=== PATIENT | female | born 1960 | race Caucasian/White ===

== ENCOUNTER → 2016-08-30 | Outpatient (CLI) | payer BC, OTHER ==
[~2016-08-30] MED LIST: ASPEC325 PO; CLB200 PO; HYDR-5688 PO; OXYSR10 PO; SNK PO
--- NOTE | 2016-08-30 16:26 | MAMMOGRAPHY REPORT ---
BILATERAL DIGITAL SCREENING MAMMOGRAM TOMOSYNTHESIS WITH CAD: 08/30/2016 CLINICAL HISTORY: Routine screening. Patient has no complaints. TECHNIQUE: Breast tomosynthesis in addition to standard 2D mammography was performed. Current study was also evaluated with a Computer Aided Detection (CAD) system. COMPARISON: Comparison is made to exams dated: 08/28/2015 mammogram, 07/17/2014 mammogram, 3 mammogram, 07/13/2011 mammogram, 07/09/2010 mammogram, and 07/14/2012 mammogram - [facility]. BREAST COMPOSITION: The tissue of both breasts is extremely dense, which lowers the sensitivity of mammography. FINDINGS: No suspicious masses, calcifications, or areas of architectural distortion are noted in e ither breast. There has been no significant interval change compared to prior exams. IMPRESSION: ACR BI-RADS CATEGORY 1: NEGATIVE There is no mammographic evidence of malignancy. A 1 year screening mammogram is recommended. The p atient will receive written notification of the results. Approximately 10% of breast cancers are not detected with mammography. A negative mammographic repor t should not delay biopsy if a clinically suggestive mass is present. Mikala Curtis M.D. /:08/30/2016 12:40:55 Inker: Marie Falcon, [facility] letter sent: Normal 1/2 BI-RADS Code: ACR BI-RADS Category 1: Negative
== END | disposition home or self-care (01) ==
LOC: C.MAMM 08:11
PROVIDERS: ATTEND Family Medicine
DX: Z12.31 Encounter for screening mammogram for malignant neoplasm of breast (principal); M81.0 Age-related osteoporosis without current pathological fracture

== ENCOUNTER → 2016-10-04 | Outpatient (CLI) | payer BC, OTHER | END | disposition home or self-care (01) | LOC: C.PAPS 16:10 | PROVIDERS: ATTEND Physician Assistant | DX: Z01.419 Encounter for gynecological examination (general) (routine) without abnormal findings (principal) ==

== ENCOUNTER → 2017-09-01 | Outpatient (CLI) | payer OTHER ==
--- NOTE | 2017-09-01 15:09 | MAMMOGRAPHY REPORT ---
BILATERAL DIGITAL SCREENING MAMMOGRAM TOMOSYNTHESIS WITH CAD: 09/01/2017 TECHNIQUE: Breast tomosynthesis in addition to standard 2D mammography was performed. Current study was also evaluated with a Computer Aided Detection (CAD) system. COMPARISON: Comparison is made to exams dated: 08/28/2015 mammogram, 07/17/2014 mammogram, 07/16/2013 mammogram, 07/14/2012 mammogram, and 07/13/2011 mammogram - [facility] [address]. BREAST COMPOSITION: The tissue of both breasts is extremely dense, which lowers the sensitivity of m ammography. FINDINGS: No suspicious masses, calcifications, or areas of architectural distortion are noted in ei ther breast. There has been no significant interval change compared to prior exams. IMPRESSION: ACR BI-RADS CATEGORY 1: NEGATIVE There is no mammographic evidence of malignancy. A 1 year screening mammogram is recommended. The pa tient will receive written notification of the results. Approximately 10% of breast cancers are not detected with mammography. A negative mammographic report should not delay biopsy if a clinically suggestive mass is present. Mikala Curtis M.D. ah/:09/01/2017 11:08:15 Wire Basket Maker: Catrachita VEGAS(R)(M), [facility] [address] letter sent: Normal 1/2 BI-RADS Code: ACR BI-RADS Category 1: Negative
== END | disposition home or self-care (01) ==
LOC: C.MAMM 08:36
PROVIDERS: ATTEND Family Medicine
DX: Z12.31 Encounter for screening mammogram for malignant neoplasm of breast (principal)

== ENCOUNTER → 2017-09-01 | Outpatient (CLI) | payer OTHER | END | disposition home or self-care (01) | LOC: C.MAMM 08:35 | PROVIDERS: ATTEND Internal Medicine Rheumatology | DX: M85.89 Other specified disorders of bone density and structure, multiple sites (principal) ==

== ENCOUNTER 2020-04-09 10:37 | Observation (INO) ==
--- NOTE | 2020-03-20 11:02 | PAT Medication Instructions ---
Medication Instructions Date of Service March 20, 2020 Home Medications cholecalciferol (vitamin D3) [Vitamin D3] 50 mcg PO QAM tramadol 50 mg PO BID PRN DO NOT take the morning of surgery cholecalciferol (vitamin D3) [Vitamin D3] 50 mcg PO QAM Take morning of surgery With a small sip of water, OTHERWISE NOTHING TO EAT OR DRINK AFTER MIDNIGHT: tramadol 50 mg PO BID PRN (okay to take up to 4 hours prior to surgery if needed) Take evening before surgery tramadol 50 mg PO BID PRN (if needed) Other Notes If you have any questions please call us at [phone] or [phone] or [phone] or [phone]
--- NOTE | 2020-03-21 09:43 | Anesthesiology Consultation ---
Date of Service March 21, 2020 Assessment & Plan (1) Encounter for pre-operative examination: COVID Status: As of 03/21 assessment, patient denies travel to endemic area, known exposure/sick contacts, or symptoms of COVID19. Patient instructed that they and their household members must follow strict social distancing guidelines, wear a mask in public and avoid travel for 14 days prior to surgery. Preoperative COVID19 testing to be completed prior to surgery per surgeon's arr angements. Patient made aware to self-isolate as much as possible between COVID testing and surgery. Chart Review Chart Review: Acceptable Risk for Surgery (pending surgeon ordered PCP clearance 03/26) and Patient seen in Pre Admission Testing Teaching & Discussion Instructed NPO after midnight before surgery, except medications with 15 cc of water. Medication instructions provided according to the PAT guidelines. History Surgery Operation Date: 04/09/20 12:00 Proposed Procedures p Right Total Knee Arthroplasty - Eric Gonzalez MD Height/Weight Height: 5 ft 2 in Weight: 62.8 kg Allergies Allergy/AdvReac Type Severity Reaction Status Date / Time No Known Allergies Allergy Unverified 03/14/20 08:35 Medications Home Medications Medication Instructions Recorded Confirmed Last Taken cholecalciferol (vitamin D3) 50 mcg PO QAM 03/14/20 03/14/20 Unknown [Vitamin D3] tramadol 50 mg PO BID PRN 03/14/20 03/14/20 Unknown Past Medical History Medical History Osteoarthritis Exercise / Class Metabolic Activity II 4-5 Yardwork/Stairs/Walk up hill (Can do stairs, slowly due to knee pain, but no SOB or CP) Past Family History Family History Other No family history of adverse response to anesthesia Past Surgical History Surgical History History of bladder surgery bladder tack History of colonoscopy History of open reduction and internal fixation (ORIF) procedure left ankle History of total knee replacement left Past Anesthesia History No Family Hx of Anesthesia Complications Pt reports her BP was high after previous TKA. Per review of records, pt was only mildly hypertensive, briefly in PACU. SAB + adductor canal block + MAC tolerated well. History of PONV No Hx of PONV and No Hx of Motion Sickness Social History Smoking Status: Never smoker Do You Dip or Chew Tobacco: No Hx Alcohol Use: No Hx Substance Use: No substance use type: does not use Review of Systems Pt denies any recent chest pain, shortness of breath, palpitations, cough, fever, URI, or uncontrolled acid reflux. Physical Exam Vital Signs BP: 135/80 P: 81bpm SPO2: 98% RA T: 98.3 F R: 16 ENMT Mouth: + dental restorations (crown on upper R molar); no chipped teeth and no loose teeth Thyromental Distance: < 3.5 Finger Breadths (3) Mallampati Class: II Neck normal visual inspection; neck extension not limited Respiratory normal respiratory effort Auscultation: lungs clear to auscultation bilaterally Cardiovascular Rate/Rhythm: regular rate and regular rhythm Heart Sounds: no murmur Testing Laboratory Results 03/21/20 09:55 03/21/20 09:22 PT 11.1 Seconds (9.0-12.0) 03/21/20 09:55 INR 1.1 (0.9-1.1) 03/21/20 09:55 APTT 27.1 Seconds (21.0-31.0) 03/21/20 09:55 Hemoglobin A1c 5.3 % (4.5-5.6) 03/21/20 09:55 Urine Color Yellow 03/21/20 09:55 Urine Appearance Clear (Clear) 03/21/20 09:55 Urine pH 8.0 (4.5-7.5) H 03/21/20 09:55 Ur Specific [place] 1.010 (1.000-1.030) 03/21/20 09:55 Urine Protein Negative (Negative) 03/21/20 09:55 Urine Glucose (UA) Negative (Negative) 03/21/20 09:55 Urine Ketones Negative (Negative) 03/21/20 09:55 Urine Nitrite Negative (Negative) 03/21/20 09:55 Ur Leukocyte Esterase Trace (Negative) H 03/21/20 09:55 Urine WBC (Auto) 1-5 /hpf (0-5) 03/21/20 09:55 Urine RBC (Auto) 0-4 /hpf (0-4) 03/21/20 09:55 U Hyaline Cast (Auto) 0 /lpf (0-5) 03/21/20 09:55 U Epithel Cells (Auto) >30 /lpf (0-5) H 03/21/20 09:55 Urine Bacteria (Auto) Negative (Negative) 03/21/20 09:55 Blood Type A Positive 03/21/20 09:55 Antibody Screen NEGATIVE 03/21/20 09:55 Electrocardiogram Date: 03/21/20 Findings: + NSR @ (68bpm) Minimal voltage criteria for LVH, may be normal variant. No significant change from 2014 EKG. Chest X-Ray Date: 03/21/20 Findings: + NAD
--- NOTE | 2020-03-21 10:22 | XRay Report ---
XR chest Pre-admission PA/Lat CLINICAL HISTORY: Preoperative evaluation. COMPARISON STUDY: Chest radiograph November 01, 2014. FINDINGS: Lung volumes are normal. Lungs are clear. There is no pneumothorax or pleural effusion. Car diac size is normal. Mediastinal contours are normal. There is no evidence for pulmonary edema. IMPRESSION: No acute cardiopulmonary findings. ACT 112: Negative or not required by law. Electronically signed by: Jose Cox M.D. 03/21/2020 10:20 AM
[2020-03-21 10:51] LABS: Basophils # (auto) 0.02 K/uL (0-0.2); Basophils % (auto) 0.4 %; Eosinophils # (auto) 0.09 K/uL (0-0.5); Eosinophils % (auto) 1.7 %; Hematocrit (blood only) 39.4 % (37-47); Lymphocytes # (auto) 1.15 K/uL (1.2-3.4); Mean Corpuscular Hemoglobin 30.7 pg (25-34); Mean Corpuscular Volume 92.9 fL (80-100); Mean Platelet Volume 9.2 fL (7.4-10.4); Monocytes # (auto) 0.41 K/uL (0.11-0.59); Monocytes % (auto) 7.8 %; Neutrophils # (auto) 3.56 K/uL (1.4-6.5); Neutrophils % (auto) 68.1 %; Platelet Count 275 K/uL (130-400); RDW Coefficient of Variation 12.7 % (11.5-14.5); RDW Standard Deviation 43.2 fL (36.4-46.3); Red Blood Count 4.24 M/uL (4.2-5.4); White Blood Count 5.23 K/uL (4.8-10.8)
[2020-03-21 10:55] LABS: Appearance Urine Clear (Clear); Bacteria Urine Automated Negative (Negative); Bilirubin Urine Negative (Negative); Blood Urine Negative (Negative); Cast Urine Automated 0 /lpf (0-5); Color Urine Yellow; Epithelial Cell Urine Auto >30 /lpf (0-5); Glucose Urine UA Negative (Negative); Ketones Urine Negative (Negative); Leukocyte Esterase Urine Trace (Negative); Nitrite Urine Negative (Negative); Protein Urine Negative (Negative); RBC Urine Automated 0-4 /hpf (0-4); Urobilinogen Urine Negative (Negative)
[2020-03-21 10:58] LABS: Albumin Level 3.5 gm/dl (3.4-5.0); BUN Creatinine Ratio 24.1 (10-20); Calcium 9.3 mg/dl (8.5-10.1); Creatinine Clr Calc Pharmacy 79.2 ml/min; Est GFR (African American) 111.1; Est GFR (Non-African American) 95.8; Potassium 3.9 mmol/L (3.5-5.1)
[2020-03-21 11:04] LABS: INR 1.1 (0.9-1.1); Partial Thromboplastin Time 27.1 Seconds (21.0-31.0); Prothrombin Time 11.1 Seconds (9.0-12.0)
[2020-03-21 12:07] LABS: Estimated Average Glucose 105 mg/dl; Hemoglobin A1C 5.3 % (4.5-5.6)
--- NOTE | 2020-03-23 04:41 | Electrocardiogram Report ---
Test Reason : Blood Pressure : / mmHG Vent. Rate : 068 BPM Atrial Rate : 068 BPM P-R Int : 154 ms QRS Dur : 090 ms QT Int : 448 ms P-R-T Axes : 074 078 063 degrees QTc Int : 476 ms Normal sinus rhythm Minimal voltage criteria for LVH, may be normal variant Borderline ECG When compared with ECG of 01-NOV-2014 13:48, No significant change was found Confirmed by Kenny Remy ([id number]) on 03/23/2020 4:40:54 AM Referred By: Eric Gonzalez Confirmed By:Kenny Remy
--- NOTE | 2020-04-08 21:13 | History and Physical Report ---
DATE OF ADMISSION: 04/09/2020 CHIEF COMPLAINT: Chronic right knee pain. HISTORY OF PRESENT ILLNESS: This is a 59-year-old female patient of Dr. Gonzalez'kylah complaining of chronic right knee pain, longstanding, now progressively getting worse. The patient has failed conservative treatment including intraarticular injections, use of tramadol, anti-inflammatories, home exercise program. The patient has increased pain with weightbearing activities and her pain does interfere with her activities of daily living. The patient has been diagnosed with end-stage osteoarthritis per clinical and radiographic exams and wishes to proceed with a right total knee arthroplasty. PAST MEDICAL HISTORY: Hypertension, osteoarthritis, dental issues. SOCIAL HISTORY: Nonsmoker and nondrinker. PAST SURGICAL HISTORY: Bilateral knee arthroscopy. FAMILY HISTORY: Noncontributory. REVIEW OF SYSTEMS: Chronic right knee pain and instability. Otherwise, denies any shortness of breath, chest pain, nausea, vomiting or any other joint complaints. MEDICATIONS: 1. Actonel 150 mg 1 tablet per month. 2. Tramadol 50 mg every 6 hours as needed. 3. Aleve as needed. 4. Terbinafine 250 mg daily. ALLERGIES: No known drug allergies. PHYSICAL EXAMINATION: GENERAL: Well-developed, well-nourished 59-year-old female in no acute distress. She is alert and oriented x3 and pleasant. HEENT: Normocephalic, atraumatic. Extraocular motions are intact. Pupils are equal and reactive to light. HEART: Regular rate and rhythm, no murmurs. LUNGS: Clear. ABDOMEN: Soft, nontender, bowel sounds present. EXTREMITIES: Right lower extremity, positive effusion with a valgus deformity. She has lateral joint line tenderness. Limited range of motion of 0-120 with pain, crepitation with range of motion, 5/5 strength with pain. Neurologically and neurovascularly, she is intact in her right lower extremity. DIAGNOSES: Right knee end-stage osteoarthritis, rheumatoid arthritis, osteoarthritis, hypertension. PLAN: The patient was advised of her diagnosis. Indications, risks, benefits, postop course have all been reviewed. The patient wished to proceed with a right total knee arthroplasty. Necessary consent forms, preoperative testing and clearances will be obtained.
[~2020-04-09 10:37] MED LIST changes: +ACETAMINOPHEN 500 MG TAB PO SCH; -ASPEC325 PO; +BUPIVACAINE 0.5 % 5 MG/1 ML PF 10ML VIAL ONE; +BUPIVACAINE/EPINEPHRINE 0.25% 1:200,000 30 ML VIAL ONE; +CEFAZOLIN 1000MG 1,000 MG/7.5 ML SYR IV SCH; -CLB200 PO; +CeleBREX 200 MG CAP PO SCH; +FAMOTIDINE 20 MG TAB PO SCH; +GABAPENTIN 600 MG DOSE PO SCH; -HYDR-5688 PO; +LR 500ML BOLUS, THEN 15ML/HR IV SCH; +METOCLOPRAMIDE HCL 10 MG TABLET PO SCH; -OXYSR10 PO; +ROPIVACAINE 0.5% HCL/PF 150 MG, BUPIVACAINE 0.5% MPF 30 ML, EPINEPHrine 30MG/30ML (OR U... INFIL SCH; -SNK PO; +TRANEXAMIC ACID 1,000 MG **IV Intra-op IV SCH; +TRANEXAMIC ACID 1,000 MG **IV Pre-op IV SCH; +dexAMETHasone 4 MG TAB PO SCH
[2020-04-09] MEDS ORDERED: LIDOCAINE HCL 2% 2 ML VIAL/AMP(20MG/ML) INFIL ONE (11:45)
[2020-04-09] MEDS ORDERED: MIDAZOLAM HCL 1 MG/ML 2ML VIAL ONE (11:45)
[2020-04-09] MEDS ORDERED: PROPOFOL IV EMULSION 10 MG/ML 20 ML VIAL IV ONE ×2 (11:45→13:29)
[2020-04-09] MEDS ORDERED: fentaNYL citrate 100 MCG/2 ML VIAL ONE (11:45)
--- NOTE | 2020-04-09 11:45 | History & Physical Bridge Note ---
Date of Service April 09, 2020 History & Physical Bridge Note I have examined the patient, reviewed the History & Physical and in the interval since the performance of the History & Physical I have noted the following changes of clinical significance: no changes noted
[2020-04-09] MEDS ORDERED: ATROPINE SULFATE 0.1 MG/ML 10ML SYR IV PRN (12:39)
[2020-04-09] MEDS ORDERED: HYDROmorphone INJ 2 MG/ML SYR/VIAL IV PRN (12:39)
[2020-04-09] MEDS ORDERED: PROMETHAZINE HCL 12.5 MG in SODIUM CHLORIDE 0.9% 50 ML IV PRN (12:39)
[2020-04-09] MEDS ORDERED: ePHEDrine sulfate 50 MG/ML AMP IV PRN (12:39)
[2020-04-09] MEDS ORDERED: fentaNYL citrate 100 MCG/2 ML VIAL IV PRN (12:39)
[2020-04-09] MEDS ORDERED: ONDANSETRON INJ 2 MG/ML 2 ML VIAL IV PRN ×2 (12:39→16:59)
[2020-04-09] MEDS ORDERED: BACITRACIN INJ 50,000 UNIT VIAL ONE (12:55)
[2020-04-09] MEDS ORDERED: ORTHO JOINT ANESTHETIC ONE (12:55)
[2020-04-09] MEDS ORDERED: PHENYLEPHRINE 100MCG/ML 5ML SYR ONE (13:45)
--- NOTE | 2020-04-09 15:42 | Operative Report ---
Post Operative Report Pre & Post Diagnosis Operation Date: 04/09/20 13:40 Pre-Op Diagnosis: Right knee end-stage osteoarthritis Post-Op Diagnosis: Right knee end-stage osteoarthritis I identified the patient and participated in the time-out.: Yes Procedure Operation Date: 04/09/20 13:40 Actual Procedures p Right Total Knee Arthroplasty(Right) - Eric Gonzalez MD Surgeon Eric Gonzalez MD Soup Mixer Wojciech RATLIFF Estimated Blood Loss 5 Findings Consistent with Post-Op Diagnosis Specimens Bone cuts Drains 2 Hemovac Anesthesia Type MAC Spinal Regional Complications none Disposition Accompanied Patient To Recovery: No Disposition: Recovery Room Indications 59-year-old female with severe osteoarthritis of right knee. History of a left knee replacement in the past. Right knee has prior history of arthroscopy. Patient has severe osteoarthritis with hypoplastic lateral femoral condyle bone loss lateral compartment marked valgus alignment with knee hyperextension and MCL laxity. Description of Procedure Patient taken to the operating room placed supine on the operating table and anesthetized under spinal MAC regional anesthesia. Exam under anesthesia demonstrated 20 degrees hyperextension flexion to 145 degrees medial and lateral laxity with varus stress she has opening laterally consistent with bone loss laterally but the medial side has laxity of the MCL and positive Rebekah exam.. A pneumatic tourniquet was placed about the thigh of the right lower extremity. The right lower extremity was prepped and draped in usual fashion. Leg was elevated exsanguinated with an Esmarch bandage and the pneumatic was raised to 300 mm mercury. An anterior incision was made across the right knee. The skin was incised longitudinally subcutaneous flaps were elevated and an incision was made through the medial retinaculum extending up into the mid third of the quadriceps tendon and extended down to the medial tibial tubercle. Intra- articular findings demonstrated absent ACL severe tricompartmental DJD grade 4 osteoarthritis exposed bone medial compartment and lateral compartment with posterior lateral bone loss significant patellofemoral osteoarthritis with circumferential patellar osteophytes. There are chronic lateral meniscus tear with subluxation and medial meniscus appeared that there was a prior partial medial meniscectomy the knee was exposed by excising the infrapatellar fat pad, excising the meniscal remnants.Any inflamed synovial tissue was resected. The fat pad over the anterior femur was resected for placement of the component in that area. The lateral synovial bands were release. Appropriate releases were performed to balance ligaments. The femur was exposed. The custom femoral cutting block was pinned in position. The distal femoral cutting block was applied. The distal femoral cut was made with the oscillating saw. The size 8, 4-in-1 cutting block was placed. The size 8 look too large and to actually rotated so went ahead and drilled intramedullary drill hole into the femur placed the guide finn and looked at a 6 degree valgus cut. Distal femoral cut was adjusted slightly by few millimeters only. Then we placed the sizing guide in place and resized the femur placing the drill holes in 3 degrees of external rotation to match epicondylar axis taking in account the lateral bone loss on the lateral femoral condyle. The femur was resized and a 6 appeared to be appropriate size. The size six 4-in-1 cutting block was pinned in position in the knee and posterior and chamfer cuts were made . The knee was extended and a subperiosteal peel lateral release was performed around the patella. The patella width was measured and width was reproduced using freehand cut technique. The 32 x 8 millimeter symmetrical patella was used. 3 drill holes are made for the pegs. The tibia was exposed. An external tibial cutting guide was just to make a perpendicular cut along exit the tibia adding some increased slope from her natural slope due to the knee hyperextension. the proximal cut was made with the oscillating saw. All osteophytes were resected. The lamina livestock farm workers was used to assess ligamentous balance and the ligaments were balanced in extension and flexion. There were large posterior femoral condylar osteophytes removed with a curved osteotome and angled curette. All notch osteophytes were removed. The tibia was reexposed and measured for a size E tibial component. This was externally rotated in line with the tibial tubercle and the fixation pins were drilled. The proximal tibia was fashioned with the drill and punch. The size 6 CR femoral trial was inserted. The trial MC inserts were used. The 16 mm insert gave balanced ligaments through full range of motion. The patella tracked centrally. the trials were removed. The orthomix anesthetic cocktail was injected per protocol. The knee was then copiously irrigated with pulsatile lavage antibiotic solution with bacitracin. The final components were cemented with Simplex cement. The final components were [employer] persona 6 CR narrow right femoral component, E tibia, 16 MC polyethylene, 32+8 patella. While the cement cured with the knee in full extension the Betadine soak was used per protocol. After the cement cured, the knee joint was copiously irrigated with antibiotic solution with bacitracin. 2 drains were brought out laterally and connected to a Hemovac. The quadriceps tendon and medial retinaculum were closed with interrupted [id number] #1 Vicryl sutures. The knee was taken through a full range of motion and repair was secure. The subcutaneous tissues were closed with 2-0 Vicryl sutures and skin was closed with victorino. Sterile dressings were applied and the patient tolerated the procedure well. Wojciech RATLIFF my physician automotive service assistant, assisted in soft tissue retraction instrument management leg positioning the closure and will participate in the postoperative care of the patient. I attest to the content of the Intraoperative Record and any orders documented therein. Any exceptions are noted below.
--- NOTE | 2020-04-09 16:28 | XRay Report ---
RIGHT KNEE 2 VIEWS History: Right total knee arthroplasty. Degenerative arthritis. Postop. FINDINGS: The patient is status post a right total knee arthroplasty. The hardware is intact. No frac ture or dislocation. Skin victorino and surgical drains are in place. IMPRESSION: Right total knee arthroplasty. No evidence for hardware complication. ACT 112: Negative or not required by law. Electronically signed by: Herrera Siegel M.D. 04/09/2020 4:26 PM
--- NOTE | 2020-04-09 16:51 | Anesthesiology Progress Note ---
Date of Service April 09, 2020 Anesthesia Post Procedure Vital Signs Vital Signs: Temp Pulse Pulse Resp BP BP Pulse Ox 04/09/20 16:35 37.1 C 102 H 20 126/69 95 04/09/20 16:25 37.1 C 102 H 17 123/70 95 04/09/20 16:15 100 H 14 121/61 95 04/09/20 16:05 106 H 23 122/74 99 04/09/20 15:58 36.1 C L 99 H 15 115/57 L 98 04/09/20 11:52 73 18 127/72 100 04/09/20 11:06 36.9 C 80 18 155/75 H 98 Pain Intensity Right Knee: Pain Intensity: 4 Transfer of Care Handoff Completed per policy Notes Mental Status: alert / awake / arousable and participated in evaluation Patient Amnestic to Procedure: Yes Nausea / Vomiting: adequately controlled Pain: adequately controlled Airway Patency, RR, SpO2: stable & adequate BP & HR: stable & adequate Hydration State: stable & adequate Neuraxial Anesthesia: was administered and sensory block is resolving Anesthetic Complications: no major complications apparent and Pt Satisfied with anesthetic care
[2020-04-09] MEDS ORDERED: MAGNESIUM HYDROXIDE SUSP 30 ML UDC PO PRN (16:59)
[2020-04-09] MEDS ORDERED: bisacodyL 10 MG SUPP PR PRN (16:59)
[2020-04-09] MEDS ORDERED: NALOXONE HCL 0.4 MG/1 ML VIAL/CARP IV PRN (16:59)
[2020-04-09] MEDS ORDERED: HYDROmorphone INJ 0.5 MG/0.5 ML SYR IV PRN (16:59)
[2020-04-09] MEDS: SODIUM CHLORIDE 0.9% 1000ML 1,000 ML IV SCH (17:39)
[2020-04-09] MEDS: FERROUS GLUCONATE 324 MG TAB PO SCH (17:39)
--- NOTE | 2020-04-09 17:46 | Hospitalist Consultation ---
Date of Consultation April 09, 2020 Assessment & Plan (1) Status post total right knee replacement: - Pain management, bowel regimen and DVT ppx with ASA 81 mg BID and SCDs per the primary team - PT/OT consults, pt is planning on outpatient therapy with [facility] starting Tuesday. - Follow am CBC to monitor for acute blood loss (2) Osteoarthritis: - As above (3) Osteoporosis: - hx of osteopenia and being on Reclast, no longer on this medication. (4) DVT prophylaxis: DVT ppx: ASA 81 mg BID , SCDs CODE: FULL Thank you for involving us in the care of Mrs. Teixeira. Please do not hesitate to call with questions or concerns. At this time medicine service will sign off. Supervising Physician Co-Signing Physician Notes EVY Supervision Note: I personally saw and examined the patient. I verified all guerrero points and agree with EVY Hernandez with the following exceptions and/or additions: This patient is a 59-year-old female with a history of osteoporosis and osteoarthritis, here for right TKA. She has no complaints postoperatively. Denies nausea or vomiting. She is tolerating her dinner. Denies chest pain or shortness of breath, no abdominal pain. She is feeling quite well. Her history was reviewed and is fairly unremarkable. ROS is negative otherwise. Vitals reviewed Gen: AAOx3, NAD HEENT: Anicteric sclerae, EOMI CV: RRR no mgr nl S1S2 Pulm: CTAB no wcr Abd: +BS soft NT ND no masses or hernias Ext: No edema, 2+ DP pulses, right lower extremity with Martin wrap in place and drain coming from knee with bloody drainage Skin: No rashes, warm/dry Neuro: Full strength throughout Preoperative laboratory studies, chest x-ray, and ECG was all reviewed and is within normal limits 59-year-old female here with osteoarthritis and osteoporosis for right TKA. Postoperative medical management consultation was requested by the orthopedic s zhao. The patient is doing excellent at this time and has no major medical issues. Plan outlined as above Hospitalist service will sign off at this time. Please feel free to reconsult as needed for new or acute issues. History of Present Illness Reason for Consultation: Postop medical management Requesting Physician: Dr. Gonzalez Attending Physician: Eric Gonzalez MD History of Present Illness This is a 59 yo female with PMHx of osteoarthritis and osteopenia. She has previously had left ORIF ankle in 2011, left knee replacement in 2012 and pelvic fracture from falling on black ice in 2013 without surgical intervention. She was on reclast for 2 years but stopped after being advised her body would need to take a break, so has not been on this for a while. She presented for elective right total knee arthroplasty by Dr. Gonzalez performed on 04/09/2020. She has eaten breakfast without any difficulty, no nausea, vomiting. Last BM was this morning. She plans to do outpatient therapy with PT at [facility] in [place], appointment is scheduled for Tuesday. She denies any other acute complaints. Allergies Allergy/AdvReac Type Severity Reaction Status Date / Time No Known Allergies Allergy Unverified 04/09/20 10:58 Home Medications Home Medications Medication Instructions Recorded Confirmed Type cholecalciferol (vitamin D3) 50 mcg PO QAM 03/14/20 04/09/20 History [Vitamin D3] tramadol 50 mg PO BID PRN 03/14/20 04/09/20 History Patient History Medical History (Updated 04/09/20 @ 18:39 by Ludmila Fritz MD) Osteoarthritis Osteoporosis Surgical History (Updated 04/09/20 @ 17:44 by Sayda Hernandez PA-C) History of bladder surgery bladder tack History of colonoscopy History of open reduction and internal fixation (ORIF) procedure left ankle History of total knee replacement left Family History Other No family history of adverse response to anesthesia Social History Smoking Status: Never smoker Second Hand Exposure: No; Do You Dip or Chew Tobacco: No; Tobacco Cessation Education Requested by Patient: No Hx Alcohol Use: No Hx Substance Use: No Preferred Language: Bhutanese Communication Ability: Effective Engraver Steel Plate Required: No Beliefs That Will Affect Care: None Current Living Situation: Spouse Other Information That Helps Us Care for You: No Feels Safe at Home: Yes Safety Concerns: Feels Safe At This Time Assistive Devices: None Review of Systems Review of Systems: Constitutional: No fever, sweats or chills Eyes: No diplopia, no worsening or blurred vision ENT: normal hearing, no trouble swallowing Respiratory: No cough, sputum, dyspnea at rest or on exertion Cardiovascular: No chest pain, tightness or palpitations Abdomen: No pain, nausea, vomiting, diarrhea or constipation Musculoskeletal: + numbness in the left food, Otherwise no joint pain, calf pain, swelling Neurologic: No weakness, numbness/tingling, or balance problems Psychiatric: No anxiety or depression Skin: No rash or itch Physical Exam Physical Exam: General: awake, alert, no apparent distress Head: Normocephalic, atraumatic ENT: PERRL, EOMI, no pharyngeal exudate, mucous membranes moist Chest: Clear to auscultation, on room air, no adventitious breath sounds Cardiac: Regular rate and rhythm, no murmur, no JVD, normal peripheral pulses, good capillary refill Abdominal: NABS x 4 quadrants, soft, nondistended, nontender to palpation, no rebound or guarding Extremities: +RLE MARTIN wrap, dressing c/d/i, ROSALIA drain in place, icepack on. Otherwise normal inspection, no peripheral edema or erythema, calfs nontender to palpation Psych: Normal mood and affect Neuro: AAO x 3, no gross motor deficits, speech is clear, no peripheral sensory deficits Results & Data Results & Data ([facility]) Vital Signs (Past 12 Hours) Vital Signs Temp Pulse Pulse Resp BP BP Pulse Ox 04/09/20 17:28 36.5 C 89 16 111/69 94 04/09/20 17:00 36.6 C 96 H 16 124/70 94 04/09/20 16:45 36.9 C 98 H 20 120/63 94 04/09/20 16:35 37.1 C 102 H 20 126/69 95 04/09/20 16:25 37.1 C 102 H 17 123/70 95 04/09/20 16:15 100 H 14 121/61 95 04/09/20 16:05 106 H 23 122/74 99 04/09/20 15:58 36.1 C L 99 H 15 115/57 L 98 04/09/20 11:52 73 18 127/72 100 04/09/20 11:06 36.9 C 80 18 155/75 H 98 PG Care Time/CCT Total # of Minutes Spent Total Time Spent with Patient: Total time spent is greater than 50% in coordination of care (as documented) at patient's floor/unit and/or counseling patient: Coding Level of Care Code 74724 Inpt Consult Level 2 Diagnoses Status post total right knee replacement Z96.651 Osteoarthritis M19.90 Osteoporosis M81.0 DVT prophylaxis Z29.9
[2020-04-09] MEDS: SENNA 8.6 MG TAB PO SCH (20:39)
[2020-04-09] MEDS: ASPIRIN 81 MG ECTAB PO SCH (20:40)
[2020-04-09] MEDS: DOCUSATE SODIUM 100 MG CAP PO SCH (20:40)
[2020-04-09] MEDS: ACETAMINOPHEN 500 MG TAB PO SCH (21:24)
[2020-04-09] MEDS: OXYCODONE HCL IR 5 MG TAB (IMMEDIATE RELEASE) PO PRN (21:25)
[2020-04-09] MEDS: CEFAZOLIN 1000MG 1,000 MG/7.5 ML SYR IV SCH (21:25)
[2020-04-10] MEDS: OXYCODONE HCL IR 5 MG TAB (IMMEDIATE RELEASE) PO PRN ×4 (03:23→23:24)
[2020-04-10] MEDS: SODIUM CHLORIDE 0.9% 1000ML 1,000 ML IV SCH (03:29)
[2020-04-10] MEDS: CEFAZOLIN 1000MG 1,000 MG/7.5 ML SYR IV SCH (05:32)
[2020-04-10] MEDS: ACETAMINOPHEN 500 MG TAB PO SCH ×3 (05:32→20:58)
[2020-04-10 06:49] LABS: Hematocrit (blood only) 34.1 % (37-47); Hemoglobin 10.9 g/dL (12.0-16.0); Mean Corpuscular Hemoglobin 30.1 pg (25-34); Mean Corpuscular Volume 94.2 fL (80-100); Mean Platelet Volume 8.8 fL (7.4-10.4); Platelet Count 242 K/uL (130-400); RDW Standard Deviation 44.8 fL (36.4-46.3); Red Blood Count 3.62 M/uL (4.2-5.4); White Blood Count 10.62 K/uL (4.8-10.8)
[2020-04-10 07:21] LABS: BUN Creatinine Ratio 24.7 (10-20); Calcium 8.3 mg/dl (8.5-10.1); Creatinine Clr Calc Pharmacy 84.2 ml/min; Est GFR (African American) 112.2; Est GFR (Non-African American) 96.8; Potassium 4.3 mmol/L (3.5-5.1)
[2020-04-10] MEDS: DOCUSATE SODIUM 100 MG CAP PO SCH ×2 (08:11→20:17)
[2020-04-10] MEDS: MULTIVITAMIN TAB PO SCH (08:11)
[2020-04-10] MEDS: ASPIRIN 81 MG ECTAB PO SCH ×2 (08:11→20:17)
[2020-04-10] MEDS: FERROUS GLUCONATE 324 MG TAB PO SCH ×2 (08:11→17:45)
--- NOTE | 2020-04-10 08:46 | Orthopedic Progress Note ---
Date of Service April 10, 2020 Assessment & Plan (1) Right knee DJD: Postop day 1 status post right total knee arthroplasty. PT/OT protocols. DVT prophylaxis-aspirin p.o. twice daily, SCDs, KAYLIN khan. Pain management as written DC planning-patient planning for outpatient PT. Admission and Anticipated Discharge Date Admission Date: April 09, 2020 Subjective Postop day 1 Patient currently sitting up in bed awake and alert. No complaints this morning. Pain is controlled. Denies any shortness of breath, chest pain, lightheadedness. Physical Exam Physical Exam: Dressings are clean, dry, and intact. Calves are soft nontender. Neurovascular is intact. Toes are mobile. She has good dorsiflexion and plantarflexion of the right foot. Hemovac drainage was 200 mL's from the previous shift. Results & Data ([facility]) Vital Signs (Past 12 Hours) Vital Signs Temp Pulse Resp BP Pulse Ox 04/10/20 07:41 36.8 C 67 15 112/64 96 04/10/20 03:38 36.6 C 63 16 110/66 98 04/09/20 23:31 36.8 C 79 16 127/68 96 Laboratory Results Laboratory Results WBC 10.62 K/uL (4.8-10.8) 04/10/20 06:33 RBC 3.62 M/uL (4.2-5.4) L 04/10/20 06:33 Hgb 10.9 g/dL (12.0-16.0) L 04/10/20 06:33 Hct 34.1 % (37-47) L 04/10/20 06:33 MCV 94.2 fL (80-100) 04/10/20 06:33 MCH 30.1 pg (25-34) 04/10/20 06:33 MCHC 32.0 g/dL (32-36) 04/10/20 06:33 RDW Std Deviation 44.8 fL (36.4-46.3) 04/10/20 06:33 RDW Coeff of Gilberto 13.0 % (11.5-14.5) 04/10/20 06:33 Plt Count 242 K/uL (130-400) 04/10/20 06:33 MPV 8.8 fL (7.4-10.4) 04/10/20 06:33 Immature Gran % (Auto) 0.0 % 03/21/20 09:55 Neut % (Auto) 68.1 % 03/21/20 09:55 Lymph % (Auto) 22.0 % 03/21/20 09:55 [place] % (Auto) 7.8 % 03/21/20 09:55 Eos % (Auto) 1.7 % 03/21/20 09:55 Baso % (Auto) 0.4 % 03/21/20 09:55 Neut # (Auto) 3.56 K/uL (1.4-6.5) 03/21/20 09:55 Lymph # (Auto) 1.15 K/uL (1.2-3.4) L 03/21/20 09:55 [place] # (Auto) 0.41 K/uL (0.11-0.59) 03/21/20 09:55 Eos # (Auto) 0.09 K/uL (0-0.5) 03/21/20 09:55 Baso # (Auto) 0.02 K/uL (0-0.2) 03/21/20 09:55 Immature Gran # (Auto) 0.00 K/uL (0.00-0.02) 03/21/20 09:55 PT 11.1 Seconds (9.0-12.0) 03/21/20 09:55 INR 1.1 (0.9-1.1) 03/21/20 09:55 APTT 27.1 Seconds (21.0-31.0) 03/21/20 09:55 PTT Ratio 1.0 03/21/20 09:55 Sodium 143 mmol/L (136-145) 04/10/20 06:33 Potassium 4.3 mmol/L (3.5-5.1) 04/10/20 06:33 Chloride 112 mmol/L (98-107) H 04/10/20 06:33 Carbon Dioxide 27 mmol/L (21-32) 04/10/20 06:33 Anion Gap 4.0 (3-11) 04/10/20 06:33 BUN 16 mg/dl (7-18) 04/10/20 06:33 Creatinine 0.63 mg/dl (0.6-1.2) 04/10/20 06:33 Est Cr Clr Drug Dosing 84.2 ml/min 04/10/20 06:33 Est GFR ( Amer) 112.2 04/10/20 06:33 Est GFR (Non-Af Amer) 96.8 04/10/20 06:33 BUN/Creatinine Ratio 24.7 (10-20) H 04/10/20 06:33 Glucose 102 mg/dl (70-99) H 04/10/20 06:33 Estimat Average Glucose 105 mg/dl 03/21/20 09:55 Hemoglobin A1c 5.3 % (4.5-5.6) 03/21/20 09:55 Calcium 8.3 mg/dl (8.5-10.1) L 04/10/20 06:33 Albumin 3.5 gm/dl (3.4-5.0) 03/21/20 09:22 Urine Color Yellow 03/21/20 09:55 Urine Appearance Clear (Clear) 03/21/20 09:55 Urine pH 8.0 (4.5-7.5) H 03/21/20 09:55 Ur Specific [place] 1.010 (1.000-1.030) 03/21/20 09:55 Urine Protein Negative (Negative) 03/21/20 09:55 Urine Glucose (UA) Negative (Negative) 03/21/20 09:55 Urine Ketones Negative (Negative) 03/21/20 09:55 Urine Blood Negative (Negative) 03/21/20 09:55 Urine Nitrite Negative (Negative) 03/21/20 09:55 Urine Bilirubin Negative (Negative) 03/21/20 09:55 Urine Urobilinogen Negative (Negative) 03/21/20 09:55 Ur Leukocyte Esterase Trace (Negative) H 03/21/20 09:55 Urine WBC (Auto) 1-5 /hpf (0-5) 03/21/20 09:55 Urine RBC (Auto) 0-4 /hpf (0-4) 03/21/20 09:55 U Hyaline Cast (Auto) 0 /lpf (0-5) 03/21/20 09:55 U Epithel Cells (Auto) >30 /lpf (0-5) H 03/21/20 09:55 Urine Bacteria (Auto) Negative (Negative) 03/21/20 09:55 Blood Type A Positive 03/21/20 09:55 Antibody Screen NEGATIVE 03/21/20 09:55
[2020-04-10] MEDS: KETOROLAC 30 MG/ML VIAL IV PRN ×2 (13:17→20:59)
[2020-04-10] MEDS: SENNA 8.6 MG TAB PO SCH (20:17)
[2020-04-11] MEDS: OXYCODONE HCL IR 5 MG TAB (IMMEDIATE RELEASE) PO PRN ×2 (04:19→08:52)
[2020-04-11] MEDS: ACETAMINOPHEN 500 MG TAB PO SCH (05:07)
--- NOTE | 2020-04-11 07:39 | Orthopedic Progress Note ---
Date of Service April 11, 2020 Assessment & Plan (1) Right knee DJD: Postop day 2 status post right total knee arthroplasty. PT/OT protocols. DVT prophylaxis-aspirin p.o. twice daily, Jovanny, KAYLIN khan. Pain management as written DC planning-patient planning for outpatient PT today. Admission and Anticipated Discharge Date Admission Date: April 09, 2020 Subjective POD #2, Doing well. Denies SOB, CP, N/V, dizziness. Pain controlled well. Did well in PT. Physical Exam Physical Exam: Right knee prevena c/d/i, no drainage. Toes/ ankle mobile. No calf tenderness. VSS A&Ox3. Results & Data ([facility]) Vital Signs (Past 12 Hours) Vital Signs Temp Pulse Resp BP Pulse Ox 04/10/20 23:19 36.9 C 84 18 148/81 H 98
[2020-04-11] MEDS: DOCUSATE SODIUM 100 MG CAP PO SCH (08:50)
[2020-04-11] MEDS: ASPIRIN 81 MG ECTAB PO SCH (08:50)
[2020-04-11] MEDS: MULTIVITAMIN TAB PO SCH (08:50)
[2020-04-11] MEDS: FERROUS GLUCONATE 324 MG TAB PO SCH (08:50)
--- NOTE | 2020-04-14 14:26 | Discharge Summary (DS) ---
DISCHARGE DIAGNOSIS: Right knee osteoarthritis. SECONDARY DIAGNOSES: Osteoporosis. CONSULTS: Sandra Hernandez PA-C/Ludmila Fritz MD. PROCEDURES: Right total knee arthroplasty performed by Dr. Gonzalez on 04/09/2020. BRIEF HISTORY: As dictated in history and physical. HOSPITAL SUMMARY: The patient was admitted on the above-noted date and had the above-noted surgery performed, which she tolerated well. Medical consult was placed for medical management during the patient's stay and they continued to follow the patient during her inpatient visit. By her first postoperative day she was currently sitting up in bed, awake, alert, no complaints that morning. Pain was controlled. Denied any shortness of breath, chest pain or lightheadedness. Dressings were clean, dry and intact. Calves were soft, nontender, neurovascularly intact. Toes were mobile. She had good dorsiflexion and plantar flexion of the right foot. Hemovac drainage was 200 mL from previous shift. Vital signs were stable and she was afebrile. Hemoglobin was 10.9 and she was started on PT and OT protocols and continued on DVT prophylaxis and pain management. By her second postoperative day, she was continuing to do well. She had no complaints. Pain was controlled. Prevena dressing was clean, dry and intact. Toes were mobile. Calves were soft, nontender. Vital signs were stable and she was afebrile. She was progressing with her physical therapy and remaining stable and it was felt she could be discharged to home. For further review, please see chart. LABORATORY AND X-RAY DATA: As per chart. DISCHARGE INSTRUCTIONS: The patient was discharged home in satisfactory condition on 04/11/2020. DIET: Regular. ACTIVITY: Weightbearing as tolerated on the right lower extremity as tolerated with walker, crutches. Follow TK instruction sheets and special care instructions as noted. Follow up with Dr. Gonzalez in 2 weeks. The patient to call for appointment if one has not been made for you. DISCHARGE MEDICATIONS: Acetaminophen 1000 mg p.o. q. 8 hours, aspirin 81 mg p.o. b.i.d., oxycodone 5 mg p.o. q. 4 hours p.r.n. Stop taking tramadol and resume vitamin D 50 mcg p.o. q.a.m.
== END 2020-04-11 11:15 | disposition home or self-care (01) ==
LOC: 3E 10:37 → ASU 10:37